=== PATIENT | female | born 1985 | race Caucasian/White ===

== ENCOUNTER → 2023-05-01 01:27 | Outpatient (CLI) | payer BC, SELFPAY ==
--- NOTE | 2023-05-01 11:21 | DI.US_ITS ---
Exam(s) US OB LAURI WEIGHT EXAM: US OB LAURI WEIGHT CLINICAL HISTORY: GROWTH US,GEST DIABETES,EST WT. TECHNIQUE: Transabdominal obstetrical ultrasound performed. COMPARISON: US US OB LIMITED from 03/29/2023 US US RENAL/KIDNEYS LIMITED from 03/29/2023 FINDINGS:: Number of fetuses: One. position: Vertex. Spine anterior. Placental location: Posterior. No evidence of previa. BIOMETRIC DATA: BPD: 100mm = 40+ 6 weeks HC: 349mm = 40+ 4 weeks AC: 367mm = 40+ 4 weeks FL: 80 mm = 41+ 0 weeks EFW: 4179 Gms = 97% Composite Age: 40+ 5 weeks REED: May 05 Heart Rate: 142BPM Amniotic fluid index: 18.4 cm. Amount of fluid is visually within normal limits. stomach appears mildly prominent, similar to the prior study. IMPRESSION: size measuring 2 weeks greater than predicted gestational age. Weight at 97th percentile. DATA REPOSITORY:
== END ==
PROVIDERS: PCP Nurse Practitioner Adult Health; Visit Provider Obstetrics & Gynecology
DX: O09.523 Supervision of elderly multigravida, third trimester (principal); O24.415 Gestational diabetes mellitus in pregnancy, controlled by oral hypoglycemic drugs; O36.63X0 Maternal care for excessive fetal growth, third trimester, not applicable or unspecified; Z3A.40 40 weeks gestation of pregnancy
CPT/HCPCS: 76816